=== PATIENT | female | born 1970 | race Caucasian/White ===

== ENCOUNTER 2020-12-01 16:15 | Emergency (ER) | payer OTHER, SELFPAY ==
--- NOTE | 2020-12-01 16:17 | ED.GENADULT ---
HPI - General Adult General Chief complaint: Ear Stated complaint: ear pain Time Seen by Provider: 12/01/20 16:17 Source: patient Mode of arrival: ambulatory Limitations: no limitations History of Present Illness HPI narrative: 50-year-old female patient presents to the [facility] with complaints of right ear pain that started this morning. Patient states that she had a bad ear infection last year that went to both ears and states that she had some leftover drops that her doctor gave her last year that she did put in there today. Patient denies any fevers, body aches or chills. Patient states she has had a little bit of a runny nose and stuffy nose. Denies any coughing, chest pain or shortness of breath. Patient states she does get seasonal allergies but does not take anything on a daily basis. Related Data Allergies Allergy/AdvReac Type Severity Reaction Status Date / Time Sulfa (Sulfonamide Allergy Unknown Verified 09/23/16 11:36 Antibiotics) Review of Systems Review of Systems: Narrative: CONSTITUTIONAL: Denies fever, chills, or sweats. EYES: Denies visual changes, redness, or discharge. ENT: Denies rhinorrhea, congestion, sore throat, positive right otalgia. CARDIOVASCULAR: Denies chest pain, palpitations, or edema. RESPIRATORY: Denies cough or dyspnea. GASTROINTESTINAL: Denies abdominal pain, nausea, vomiting, or diarrhea. GENITOURINARY: Denies dysuria or hematuria. SKIN: Denies rash or itching. MUSCULOSKELETAL: Denies back pain, joint pain, or myalgia. NEUROLOGIC: Denies headache, numbness, or weakness. PSYCHIATRIC: Denies anxiety or depression. [facility] Past Medical History Medical History (Updated 12/01/20 @ 16:27 by CHUCK Diaz) Anxiety Surgical History Surgical History (Updated 12/01/20 @ 16:18 by CHUCK Diaz) H/O tubal ligation Family History Family History (Updated 12/01/20 @ 16:18 by CHUCK Diaz) Father Malignant neoplasm of prostate Sibling Family history of malignant neoplasm of bone Other Cerebrovascular accident Social History Social History Smoking status: Never smoker Alcohol intake: current Comments At the time of my signature I agree with nursing past medical history, surgical, social, and family history. There is no relevant family history pertinent to the presenting complaint. Exam Narrative: Exam Narrative: GENERAL: Well-appearing, well-nourished, and in no acute distress. HEAD: Normocephalic, atraumatic. EYES: PERRLA and EOMI. ENT: Nares clear, no rhinorrhea or epistaxis. Mucous membranes moist. The left TM is white and appears to be full of fluid. Unable to assess the right TM due to swelling and discharge noted to the right canal with slight erythema and swelling noted to the outer ear. Patient does complain of pain with manipulation to the outer ear. NECK: Supple. No lymphadenopathy CHEST: Clear to auscultation. No respiratory distress. HEART: Regular rate and rhythm. No murmur heard. Normal peripheral pulses. ABDOMEN: Soft, nontender, nondistended, normal active bowel sounds. EXTREMITIES: Normal range of motion. No edema. SKIN: Warm, dry, no rash. NEURO: No focal deficits. Alert and oriented x3. Course Vital Signs Vital signs: Vital Signs Temperature 37.0 C 12/01/20 16:21 Pulse Rate 99 12/01/20 16:21 Respiratory Rate 16 12/01/20 16:21 Blood Pressure 123/78 12/01/20 16:21 Pulse Oximetry 100 12/01/20 16:21 Temperature 37.0 C 12/01/20 16:24 Pulse Rate 99 12/01/20 16:24 Respiratory Rate 16 12/01/20 16:24 Blood Pressure 123/78 12/01/20 16:24 Pulse Oximetry 100 12/01/20 16:24 Vital signs reviewed Medical Decision Making Differential Diagnosis Differential Diagnosis: Differential diagnosis: Otitis media, otitis externa, perforated TM, infection of the outer ear, foreign body or cerumen impaction, ruptured TM, acute mastoiditis, ligament otitis ext
[2020-12-01 16:21] VITALS: BP 123/78; PULSE 99; RESP 16; TEMP 37; O2SAT 100
[2020-12-01 16:24] VITALS: BP 123/78; PULSE 99; RESP 16; TEMP 37; O2SAT 100
== END 2020-12-01 16:33 | disposition home or self-care (01) ==
PROVIDERS: Emergency Provider Nurse Practitioner Family; PCP Family Medicine
DX: H66.92 Otitis media, unspecified, left ear (principal); H73.892 Other specified disorders of tympanic membrane, left ear; H60.501 Unspecified acute noninfective otitis externa, right ear
CPT/HCPCS: 99213; G0463

== ENCOUNTER 2023-03-14 23:31 | Emergency (ER) | payer OTHER, SELFPAY ==
[2023-03-14 23:47] VITALS: BP 106/73; PULSE 75; RESP 18; TEMP 36.6; O2SAT 99
--- NOTE | 2023-03-15 00:19 | ED.GENADULT ---
HPI - General Adult General Chief complaint: Unspecified Stated complaint: tick in lower eyelid Time Seen by Provider: 03/14/23 23:57 Source: patient Mode of arrival: ambulatory Limitations: no limitations History of Present Illness HPI narrative: This is a 52-year-old female who presents to the ED with chief complaint for possible tick bite. She states that she has noticed a black speck in her eye for the past couple of days. She was trying to get realize that it was stuck in the eyelid. She thinks it could be intact. Reports some irritation in the area but no vision problems or sharp eye pain. Denies any further site of pain or injury. Related Data Allergies Allergy/AdvReac Type Severity Reaction Status Date / Time Sulfa (Sulfonamide Allergy Unknown Unknown Verified 03/14/23 23:56 Antibiotics) Review of Systems Review of Systems: CONSTITUTIONAL: Denies fever, chills, or sweats. EYES: See HPI ENT: Denies rhinorrhea, congestion, sore throat, or otalgia. CARDIOVASCULAR: Denies chest pain, palpitations, or edema. RESPIRATORY: Denies cough or dyspnea. GASTROINTESTINAL: Denies abdominal pain, nausea, vomiting, or diarrhea. GENITOURINARY: Denies dysuria or hematuria. SKIN: Denies rash or itching. MUSCULOSKELETAL: Denies back pain, joint pain, or myalgia. NEUROLOGIC: Denies headache, numbness, dizziness, or weakness. PSYCHIATRIC: Denies anxiety or depression. [facility] Past Medical History Medical History (Updated 03/15/23 @ 00:22 by Balbir Gupta PA-C) Anxiety Surgical History Surgical History (Updated 12/01/20 @ 16:18 by CHUCK Diaz) H/O tubal ligation Family History Family History (Updated 12/01/20 @ 16:18 by CHUCK Diaz) Father Malignant neoplasm of prostate Sibling Family history of malignant neoplasm of bone Other Cerebrovascular accident Social History Social History (Updated 12/17/20 @ 09:01 by Kramen Gomez CMA) Smoking status: Never smoker Alcohol intake: current Substance use: never Substance use type: does not use Exam Narrative: GENERAL: Well-appearing, well-nourished, and in no acute distress. HEAD: Normocephalic, atraumatic. EYES: PERRLA and EOMI. there is a tick attached to her lower eyelid externally. It is not engorged. ENT: Nares clear, no rhinorrhea or epistaxis. Mucous membranes moist. Oropharynx without tonsillar hypertrophy exudate or other lesions. NECK: Supple. No adenopathy or masses. CHEST: No respiratory distress. Clear to auscultation. No wheezes rales or rhonchi HEART: Regular rate and rhythm. No murmur heard. Normal peripheral pulses. ABDOMEN: Soft, nontender, nondistended, normal active bowel sounds. MSK: Normal range of motion. No edema. SKIN: Warm, dry, no rash. NEURO: Alert and oriented x3. No focal deficits. PSYCH: Normal mood and affect. Course Vital Signs Vital signs: Vital Signs Temperature 97.8 F 03/14/23 23:47 Pulse Rate 75 03/14/23 23:47 Respiratory Rate 18 03/14/23 23:47 Blood Pressure 106/73 03/14/23 23:47 Pulse Oximetry 99 03/14/23 23:47 Oxygen Delivery Room Air 03/14/23 23:47 Temperature 97.8 F 03/14/23 23:47 Pulse Rate 74 03/15/23 00:40 Respiratory Rate 16 03/15/23 00:40 Blood Pressure 114/74 03/15/23 00:40 Pulse Oximetry 100 03/15/23 00:40 Oxygen Delivery Room Air 03/14/23 23:47 Procedures FB Removal Eye Foreign Body #1: Foreign Body Removal Date: 03/15/23 Foreign Body Removal Time: 00:21 Time Out performed: Yes Location: eye (L) Topical anesthetic used: tetracaine Foreign body: insect Evidence of corneal penetration: No Technique: other (Forceps) Procedure performed under: direct visualization with magnification Patient tolerated procedure: well and no complications Foreign Body Removal Narrative: Apparent deer tick attached to the lower eyelid. Removed without diff
[2023-03-15 00:40] VITALS: BP 114/74; PULSE 74; RESP 16; O2SAT 100
== END 2023-03-15 00:41 | disposition home or self-care (01) ==
LOC: ANHED 03-15 00:26
PROVIDERS: Emergency Provider Physician Assistant; PCP Family Medicine
DX: S00.262A Insect bite (nonvenomous) of left eyelid and periocular area, initial encounter (principal); W57.XXXA Bitten or stung by nonvenomous insect and other nonvenomous arthropods, initial encounter
CPT/HCPCS: 99283

== ENCOUNTER 2023-12-30 07:55 | Outpatient (NON) | payer OTHER, SELFPAY | END 2023-12-30 07:56 | disposition home or self-care (01) | PROVIDERS: PCP Family Medicine; Visit Provider Internal Medicine Gastroenterology | DX: Z86.010 Personal history of colon polyps (principal); K52.89 Other specified noninfective gastroenteritis and colitis | CPT/HCPCS: 88305 ==

== ENCOUNTER 2023-12-30 10:37 | Day surgery (SDC) | payer OTHER, SELFPAY ==
[2023-12-21 09:38] VITALS: BMI 24.5
[2023-12-23 11:26] VITALS: BMI 23.4
[2023-12-30 11:50] VITALS: BMI 23.3
[2023-12-30 12:02] VITALS: BP 114/72; PULSE 82; RESP 16; TEMP 37.2; O2SAT 99
[2023-12-30] MEDS: LACTATED RINGERS 1,000 ML 150 ML IV CONT (12:04)
--- NOTE | 2023-12-30 12:16 | PM.HPGS ---
History of Present Illness History of Present Illness Consent: Risks, benefits, and alternatives have been discussed and questions answered. Patient agrees to proceed with procedure. Chief complaint: Hemorrhage of anus and rectum Narrative: Frances Reeder is a 53 year old female presents for colonoscopy. Patient reports over the last 1 month has noticed bright red blood per rectum. This occurs with every bowel movement. Same interval of time she feels a hindrance on having a bowel movement. She denies any weight loss. Her past history is significant for an adenomatous colon polyp removed from the colon in 2018. Additionally her family history is sigmoid. Patient presents today for colonoscopy to assess bleeding and prior history of colon polyps. Review of Systems Review of Systems: Review of systems noncontributory. [facility] Past Medical History Medical History Anxiety Surgical History Surgical History H/O tubal ligation Family History Family History Father Malignant neoplasm of prostate Sibling Family history of malignant neoplasm of bone Other Cerebrovascular accident Social History Social History (Updated 12/18/23 @ 14:12 by Arabella Morales MA) Smoking status: Never smoker Alcohol intake: current Drinks per week: 1 Substance use: never Substance use type: does not use Do You Feel Safe in your Home?: Yes Lack of Transportation: No Lack of Food: Never True Current Housing: I Have Housing Concerned About Future Housing: No Difficulty Paying Gas/Electric Bills: No Difficulty Paying for Meds: No Currently Unemployed: No Education: Master's Degree or Higher Difficulty w/ Childcare or Family Care: No Living arrangements: with family Occupation/Education: occupation Gender identity (if verbalized by the patient): Female Sexual Orientation (if Verbalized by the Patient): Straight or Heterosexual Spiritual care concerns: No Meds Home Medications and Allergies Home Medications Medication Instructions Recorded Confirmed Type No Home Medications 12/18/23 12/30/23 History Allergies Allergy/AdvReac Type Severity Reaction Status Date / Time Sulfa (Sulfonamide Allergy Unknown Unknown Verified 12/30/23 11:45 Antibiotics) Vital Signs Vital Signs - 24 hr 12/30/23 12:02 Temperature 98.9 F Pulse Rate 82 Respiratory Rate 16 Blood Pressure 114/72 Pulse Oximetry 99 Oxygen Delivery Room Air Exam Narrative: Physical exam reveals patient be alert. Vital signs stable. HEENT exam is unremarkable. Patient is anicteric. Lungs are clear to auscultation and to percussion . Heart is without murmur or extra sounds. Abdomen bowel sounds are present soft nontender with no organomegaly. Digital external rectal exam normal. Assessment and Plan Assessment and plan (1) Blood in stool: Code(s): K92.1 - Melena Status: Acute Assessment and Plan: Patient with a 1 month history of bright red blood per rectum. Plan is be to assess more thoroughly. Further recommendations may be given after endoscopy. (2) Family history of colon cancer in father: Code(s): Z80.0 - Family history of malignant neoplasm of digestive organs Status: Acute Assessment and Plan: Patient's father had colon cancer. Recommend surveillance colonoscopy at 5 year intervals. (3) History of colon polyps: Code(s): Z86.010 - Personal history of colonic polyps Status: Acute Assessment and Plan: Patient does have a history of adenomatous colon polyp removed 5 years ago. surveillance colonoscopy therefore repeat recommended at 5 year intervals.
--- NOTE | 2023-12-30 12:45 | P.PNAN_ITS ---
Anes - Initial Pre Proc Eval Procedure: Operation Date: 12/30/23 13:00 Proposed Procedures p Diagnostic Colonoscopy - Gonzalez Swartz MD Date/Time: 12/30/23 12:45 Surgeon: Gonzalez Swartz MD Pre Op Diagnosis: Hemorrhage of anus and rectum Patient Data Age: 53 Gender: F Height: 1.73 m Weight: 69.5 kg Last Vital Signs Temp 37.2 C 12/30/23 12:02 Pulse 82 12/30/23 12:02 Resp 16 12/30/23 12:02 BP 114/72 12/30/23 12:02 Pulse Ox 99 12/30/23 12:02 O2 Del Method Room Air 12/30/23 12:02 Allergies Allergy/AdvReac Type Severity Reaction Status Date / Time Sulfa (Sulfonamide Allergy Unknown Unknown Verified 12/30/23 11:45 Antibiotics) Home Medications Medication Instructions Recorded Confirmed Type No Home Medications 12/18/23 12/30/23 History Patient hx anesthesia problems: none Family hx anesthesia problems: none Results Review: All pre-operative results and documents have been reviewed as part of the pre- operative evaluation. [facility] Past Medical History Medical History Anxiety Surgical History Surgical History H/O tubal ligation Family History Family History Father Malignant neoplasm of prostate Sibling Family history of malignant neoplasm of bone Other Cerebrovascular accident Social History Social History Smoking status: Never smoker Alcohol intake: current Drinks per week: 1 Substance use: never Substance use type: does not use Do You Feel Safe in your Home?: Yes Lack of Transportation: No Lack of Food: Never True Current Housing: I Have Housing Concerned About Future Housing: No Difficulty Paying Gas/Electric Bills: No Difficulty Paying for Meds: No Currently Unemployed: No Education: Master's Degree or Higher Difficulty w/ Childcare or Family Care: No Living arrangements: with family Occupation/Education: occupation Gender identity (if verbalized by the patient): Female Sexual Orientation (if Verbalized by the Patient): Straight or Heterosexual Spiritual care concerns: No Anes - Eval Final PreProcedure Day of Procedure 12/30/23 12:45 Patient weight: normal Heart: regular rate and rhythm Lungs: clear to auscultation Airway: Mallampati scale class II Neurological: alert and oriented Last oral intake: >/= 8 hours ASA classification: I Emergent: no Anesthetic plan: proceed Anesthesia type and monitoring: general GIVS and standard monitoring Results Review: All pre-operative results and documents have been reviewed as part of the pre- operative evaluation. Informed Consent: The patient's anesthetic plan and its attendant risks and benefits were discussed with the patient/family/POA. Questions were solicited and answers provided to the satisfaction of the patient/family/POA.
[2023-12-30 13:36] VITALS: BP 95/67; PULSE 78; RESP 16; O2SAT 100
[2023-12-30 13:46] VITALS: BP 112/76; PULSE 76; RESP 16; O2SAT 100
--- NOTE | 2023-12-30 13:50 | WPDANESPN ---
Anes - Prog Note Post-Op Date/Time: 12/30/23 13:50 Cardiovascular status: normal Respiratory status: normal Airway patency: baseline Mental status: baseline Post-Op hydration status: normal Vital Signs: Last Vital Signs Temp 37.2 C 12/30/23 12:02 Pulse 76 12/30/23 13:46 Resp 16 12/30/23 13:46 BP 112/76 12/30/23 13:46 Pulse Ox 100 12/30/23 13:46 O2 Del Method Room Air 12/30/23 13:46 Pain Score (VAS): 0/10 I/O: Intake & Output 12/29/23 12/30/23 12/30/23 23:59 07:59 15:59 Intake Total 450 Balance 450 Patient Feedback: Patient satisfied with anesthetic care.
[2023-12-30 13:56] VITALS: BP 104/66; PULSE 72; RESP 18; O2SAT 100
== END 2023-12-30 14:12 | disposition home or self-care (01) ==
PROVIDERS: PCP Family Medicine; Visit Provider Internal Medicine Gastroenterology
PROC: 0DJD8ZZ Inspection of Lower Intestinal Tract, Via Natural or Artificial Opening Endoscopic (ICD-10-PCS; CPT 45378; principal; 2023-12-30 13:00)
DX: K92.1 Melena (principal); K51.30 Ulcerative (chronic) rectosigmoiditis without complications; K64.8 Other hemorrhoids
CPT/HCPCS: 45380

== ENCOUNTER 2024-02-16 12:34 | Outpatient (CLI) | payer OTHER, SELFPAY ==
[2024-02-16 13:03] LABS: Hemoglobin 12.3 g/dL (12.0-15.0); Mean Corpuscular HGB Conc 30.8 g/dl (32-36); Mean Corpuscular Hemoglobin 27.5 pg (26-34); Mean Corpuscular Volume 89.5 fl (80-100); Mean Platelet Volume 8.5 fl (7.4-10.4); Platelet Count Result 414 k/mm3 (150-375); Red Blood Count 4.47 M/mm3 (4.2-5.4); Red Cell Distribution Width 12.7 % (11.5-14.5); White Blood Count 8.2 K/mm3 (4.5-10.0)
[2024-02-16 13:20] LABS: Alanine Aminotransferase 22 U/L (6-35); Albumin Level 4.3 g/dL (3.5-5.1); Alkaline Phosphatase 119 U/L (38-126); Anion Gap 5 mmol/L (4-12); Aspartate Amino Transferase 32 U/L (14-36); Bilirubin,Total 0.3 mg/dL (0.2-1.3); Blood Urea Nitrogen 14 mg/dL (7-17); Carbon Dioxide 29 mmol/L (22-30); Chloride 105 mmol/L (98-107); Estimated Glomerular Filt Rate > 60; Glucose 103 mg/dL (65-110); Potassium 4.3 mmol/L (3.4-5.0); Sodium 139 mmol/L (137-145)
[2024-02-16 15:01] LABS: Erythrocyte Sedimentation Rate 23 mm/hr (0-20)
== END 2024-02-16 12:35 | disposition home or self-care (01) ==
LOC: ANHLAB 12:36
PROVIDERS: PCP Family Medicine; Visit Provider Nurse Practitioner Family
DX: K63.89 Other specified diseases of intestine (principal)
CPT/HCPCS: 36415; 80053; 85027; 85652; 86140

== ENCOUNTER 2024-02-17 11:14 | Outpatient (CLI) | payer OTHER, SELFPAY ==
[2024-02-17 12:25] LABS: Toxigenic C. Diff NEGATIVE (NEGATIVE)
[2024-02-25 00:09] LABS: Calprotectin, Stool 660 mcg/g
== END 2024-02-17 11:15 | disposition home or self-care (01) ==
PROVIDERS: PCP Family Medicine; Visit Provider Nurse Practitioner Family
DX: K63.89 Other specified diseases of intestine (principal)
CPT/HCPCS: 83993; 87493

== ENCOUNTER 2024-09-29 10:54 | Outpatient (CLI) | payer OTHER, SELFPAY ==
[2024-09-29 11:52] LABS: Hemoglobin 14.1 g/dL (12.0-15.0); Mean Corpuscular Hemoglobin 27.8 pg (26-34); Mean Corpuscular Volume 86.8 fl (80-100); Mean Platelet Volume 8.8 fl (7.4-10.4); Platelet Count Result 378 k/mm3 (150-375); Red Blood Count 5.07 M/mm3 (4.2-5.4); Red Cell Distribution Width 13.8 % (11.5-14.5)
[2024-09-29 12:09] LABS: Alanine Aminotransferase 20 U/L (6-35); Albumin Level 4.7 g/dL (3.5-5.1); Alkaline Phosphatase 117 U/L (38-126); Anion Gap 8 mmol/L (4-12); Aspartate Amino Transferase 30 U/L (14-36); Bilirubin,Total 0.5 mg/dL (0.2-1.3); Blood Urea Nitrogen 18 mg/dL (7-17); CRP < 0.5 mg/dL (<1.0); Calcium 9.6 mg/dL (8.4-10.2); Carbon Dioxide 28 mmol/L (22-30); Chloride 105 mmol/L (98-107); Estimated Glomerular Filt Rate > 60; Glucose 77 mg/dL (65-110); Potassium 4.2 mmol/L (3.4-5.0); Sodium 141 mmol/L (137-145)
[2024-09-29 13:05] LABS: Hepatitis B Surface Antigen Negative (Negative)
[2024-09-29 13:22] LABS: Hepatitis B Surface Anti Res Negative
[2024-10-01 11:13] LABS: Hepatitis B Core Ab Total NON-REACTIVE (NON-REACTIVE)
[2024-10-03 15:13] LABS: NIL 0.02 IU/mL; Quantiferon TB Plus, 1T NEGATIVE (NEGATIVE)
== END 2024-09-29 10:55 | disposition home or self-care (01) ==
PROVIDERS: PCP Family Medicine; Visit Provider Nurse Practitioner Family
DX: K63.89 Other specified diseases of intestine (principal); K92.1 Melena; Z11.59 Encounter for screening for other viral diseases
CPT/HCPCS: 36415; 80053; 85027; 86140; 86480; 86704; 86706; 87340

== ENCOUNTER 2024-10-03 10:20 | Outpatient (CLI) | payer OTHER, SELFPAY ==
[2024-10-03 12:59] LABS: Toxigenic C. Diff NEGATIVE (NEGATIVE)
== END 2024-10-03 10:21 | disposition home or self-care (01) ==
LOC: ANHLAB 10:22
PROVIDERS: PCP Family Medicine; Visit Provider Nurse Practitioner Family
DX: K63.89 Other specified diseases of intestine (principal); K92.1 Melena; Z80.0 Family history of malignant neoplasm of digestive organs
CPT/HCPCS: 87045; 87177; 87209; 87269; 87427; 87449; 87493